=== PATIENT | male | born 1970 | race Caucasian/White ===

== ENCOUNTER → 2022-06-25 14:28 | Outpatient (BNVA) | payer MEDICARE, SELFPAY | PROVIDERS: Referring Provider Nurse Practitioner Family; Visit Provider Specialist | DX: G37.3 Acute transverse myelitis in demyelinating disease of central nervous system (principal); G82.22 Paraplegia, incomplete | CPT/HCPCS: 99205 ==

== ENCOUNTER → 2022-10-08 14:58 | Outpatient (BNVA) | payer MEDICARE, SELFPAY | PROVIDERS: Visit Provider Specialist | DX: G37.3 Acute transverse myelitis in demyelinating disease of central nervous system (principal) | CPT/HCPCS: 99214 ==

== ENCOUNTER → 2023-04-03 08:44 | Outpatient (BNVA) | payer MEDICARE, SELFPAY | PROVIDERS: Visit Provider Specialist | DX: G37.3 Acute transverse myelitis in demyelinating disease of central nervous system (principal) | CPT/HCPCS: 99214 ==

== ENCOUNTER 2023-06-20 06:00 | Outpatient (RCR) | payer MEDICARE, SELFPAY | END 2023-07-11 23:59 | disposition home or self-care (01) | LOC: SOT 06:00 | PROVIDERS: Visit Provider Specialist | DX: G37.3 Acute transverse myelitis in demyelinating disease of central nervous system (principal) | CPT/HCPCS: 97167 ==